=== PATIENT | female | born 1960 | race Caucasian/White ===

== ENCOUNTER 2016-07-12 11:04 | Day surgery (SDC) | payer MEDICARE ==
[~2016-07-12] VITALS: Ht 170.2 cm; Wt 136.1 kg
[~2016-07-12 11:04] MED LIST: AMT25T PO; BUPR150T8 PO; CALC-1034 PO; FLUC150T3 PO; GABA400C PO; HYDR-3089 PO; IBUP200C PO; LEVO112T4 PO; Lactated Ringer's 1,000 ML IV ONE; METH750T3 PO; OMEP40CA36 PO; TOPI200C5 PO
[2016-07-12] MEDS ORDERED: Propofol 10,000 mCg/mL 20 mL Inj ONE (11:05)
[2016-07-12 11:29] VITALS: BP 144/82; PULSE 96; O2SAT 96
[2016-07-12] MEDS ORDERED: MetoCLOpramide 5 mg/mL 2 mL Inj IVPUSH PRN (12:05)
[2016-07-12] MEDS ORDERED: Lactated Ringer's 1,000 ML IV SCH (12:05)
[2016-07-12] MEDS ORDERED: Ondansetron 2 mg/mL 2 mL Inj IVPUSH PRN (12:05)
[2016-07-12 12:51] VITALS: BP 113/70; PULSE 90; RESP 16; O2SAT 96
[2016-07-12 13:03] VITALS: BP 113/70; PULSE 89; RESP 16; O2SAT 96
[2016-07-12 13:13] VITALS: BP 106/68; PULSE 90; RESP 16; O2SAT 97
--- NOTE | 2016-07-12 13:27 | ENDO ---
[address] [address] ENDOSCOPY PROCEDURE PATIENT: KYLER CONCEPCION : 1960 MR#: [id number] ADMIT: 07/12/2016 JOB ID: [id number] DATE: 07/12/2016 PRIMARY PROVIDER: Paul Hubbard MD PROCEDURE: 1. Esophagogastroduodenoscopy with biopsy. 2. Colonoscopy. INDICATIONS: A 55-year-old female with a history of gastroesophageal reflux who reports for [facility] screening. Generally speaking, symptoms are reasonably well controlled on Prilosec. She additionally has constipation that alternates with diarrhea particularly when stressed out. Colon cancer screening is pursued as well. EQUIPMENT: GIF H 180 J and a PCF H 190 DL. SEDATION: Monitored anesthesia as provided by Dr. Aki Ariza. COMPLICATIONS: None identified. BOWEL PREPARATION: Fair, adequate examination. PROCEDURAL INFORMATION: After the risks and benefits are explained, written and verbal informed consent was obtained. The patient was brought into the endoscopy suite and placed into the left lateral decubitus position. Sedation was achieved using the above-stated medications with the addition of oxygen via nasal cannula. The scope was introduced into the mouth through the bite block, and advanced under direct visualization through the oropharynx, esophagus, stomach, and onto the second portion of the duodenum. The scope was slowly withdrawn to carefully examine the mucosa for any defects or lesions. Retroflexed views were accomplished in the stomach. The stomach was decompressed. The scope removed from the patient who tolerated the procedure well. The patient was then turned around. A digital rectal examination accomplished. Mild internal hemorrhoids noted. The scope was introduced into the rectum and advanced under direct visualization to the level of the cecum, as identified by the appendiceal orifice and ileocecal valve. The terminal ileum was briefly accessed. The scope then slowly withdrawn to carefully examine the mucosa for any defects or lesions. Multiple direct views were made through the dentate line for exclusion of pathology. The colon was decompressed. The scope removed the patient who tolerated the procedure well. FINDINGS: 1. Duodenum: This appeared normal from the bulb through to the second portion. 2. Stomach: The patient had a mild gastropathy characterized by some patchy erythema in the antrum. No outlet obstruction. No ulcers. No mass lesions. Several benign diminutive polyps were seen through the body of the stomach and a few of these were sampled for histopathologic analysis. Otherwise, retroflexed views of the LES were rather unremarkable. 3. Esophagus: The patient had a subtle sliding hiatal hernia and the GE junction was at approximately 38 cm from the incisors. There was a small area of healing superficial ulcer versus erosion right at the level of the GE junction in the 3-4 o'clock location. No mass lesions. No sinister pathology seen throughout the esophagus. 4. Colon: No macroscopic colitis seen throughout. No proctitis. No significant polyps or mass lesions. ENDOSCOPIC DIAGNOSES: 1. Diminutive gastric polyps. 2. Mild gastropathy. 3. Hiatal hernia. 4. Esophagitis. 5. Mild hemorrhoids. 6. Otherwise visually unremarkable colonoscopy to cecum. RECOMMENDATIONS: 1. Await histopathology. 2. Continue anti reflux therapy. For any increasing symptoms, the patient may need to consider b.i.d. omeprazole therapy in addition to lifestyle modifications for weight loss. 3. Repeat colonoscopy 10 years' time. 4. No surveillance EGD is anticipated. 5. The patient is encouraged to attempt fiber supplementation with 2 tablespoons ground flaxseed fiber mixed with 8 ounces of water or juice once or twice daily. Ideally this eliminates both the constipation and diarrhea that tend to fluctuate. 6. Followup in GI clinic on a p.r.n. basis any time.
--- NOTE | 2016-07-12 14:39 | PCM.ANEP1 ---
Post Anesthesia Phase 1 PACU Phase 1 Assessment Vital Signs Vital Signs Date Time Temp Pulse Resp B/P Pulse Ox O2 Delivery O2 Flow Rate FiO2 07/12/16 13:13 90 16 106/68 97 Room Air 07/12/16 13:03 89 16 113/70 96 Room Air 07/12/16 12:51 35.7 90 16 113/70 96 Room Air 07/12/16 11:29 36.4 96 144/82 96 Room Air Anesthetic Administered: MAC Level of Alertness: Awake, talking LOPES's with Equal Strength: Yes Pain: No Nausea or Vomiting: No Oxygen Delivery: Room Air Lungs: Clear to Auscultation, Normal Air Movement Dermatome Level: Full Sensation Aki Ariza MD Jul 12, 2016 14:39
--- NOTE | 2016-07-12 14:39 | PCM.HPANE ---
Patient Data Surgeon Admitting Provider: Attending Provider:Alberto Schulz MD Primary Care Physician:Paul Hubbard MD Other Provider:AssocLorenaLeawood Anesthesia Reason for Visit Irritable Bowel Syndrome, Gerd Ht/WT & BMI Body Mass Index Allergies Coded Allergies: latex (Verified Allergy, Severe, RASH, 03/10/16) Past Anesthesia History Anesthesia History: Positive for:: Anesthesia Reactions (awareness/recall during thyroid surgery), Denies:: Fam Anesthesia Reaction, Malignant Hyperthermia Diabetes History Hx Diabetes?: Yes Type of Diabetes: Diet Controlled Glycemic Control: Oral Medication MRSA MRSA: No Medications Reported Medications Gabapentin (Neurontin)400 Mg Ahlwxos883 Mg PO TID 30 Days Ref 0 07/08/16 Hydrocodone-Acetaminophen 10-300 mg 1 Each Tablet1 Tablet PO [id number] PRN For Pain Ref 0 07/08/16 Amitriptyline 25 Mg Tab25 Mg PO BID Ref 0 07/08/16 Bupropion ER (Wellbutrin SR)150 Mg Tablet.er450 Mg PO DAILY Ref 0 12/11/15 Topiramate ER 200 Mg Yjhnpgb196 Mg PO BID 12/11/15 Omeprazole 40 Mg Capsule.dr40 Mg PO DAILY Ref 0 12/11/15 Methocarbamol 750 Mg Ukcvyd097 Mg PO Q4H PRN For Spasm Ref 0 12/11/15 Levothyroxine 112 Mcg Mkxplh349 Mcg PO HS For Thyroid Replacement #AD TABLET Ref 0 12/11/15 Calcium Carbonate/Vitamin D3 (Calcium 600 + Vit D3 400 Tab)600 Mg-400 Tablet1 Each PO BID 12/11/15 Discontinued Reported Medications Fluconazole 150 Mg Diemnm988 Mg PO ONCE #1 TABLET Ref 0 07/08/16 Ibuprofen 200 Mg Frkboyw142 Mg PO QID PRN For Pain Ref 0 12/11/15 Gabapentin (Neurontin)300 Mg [place]545 Mg PO BID 30 Days Ref 0 12/11/15 Amitriptyline 10 Mg Igolkj15 Mg PO BID Ref 0 12/11/15 Discontinued Scripts Hydrocodone-Acetaminophen 10-325 mg 1 Each Tablet1-2 Tablet PO Q6H PRN For Pain #50 TABLET Ref 0 Prov:Zeferino Cardona MD 03/11/16 History History of ENT Problems?: Yes HEENT History: Positive for:: Sinus Problem (CHRONIC MAXILLARY SINUSITIS ( HAYFEVER)) Hx of Heart Problems?: No Cardiovascular History: Positive for:: Chest Pain (DEEMED NON-CARDIAC) Denies:: Congestive Heart Failure Hypertension Hx of Respiratory Problem?: No Respiratory History: Positive for:: Chest Surgery (S/P MEDIASTINOSCOPY) Dyspnea (CAMPBELL) Pneumonia (HX OF) Use of C-PAP Machine Denies:: Tuberculosis Hx Neurologic Problems?: No Neurological History: Positive for:: CVA (@ AGE 41YRS) Headaches Hx of GI Problems?: Yes Gastrointestinal History: Positive for:: Gastroesphageal Reflux Hx of Problems?: No Genitourinary History: Positive for:: Kidney Stones Denies:: HX of Hemodialysis (CHRONIC RENAL INSUFFIENCY) Female Hx: Denies:: Currently Skin History: Denies:: History Skin Disorders? Pressure Ulcers Hx Musculoskeletal Problems?: Yes Musculoskeletal History: Positive for:: Musculoskeletal Trauma (S/P ORIF LT WRIST) Hx of Psycho/Social Problems?: Yes Psycho Social History: Positive for:: Anxiety Hx Depression Denies:: Suicide Attempt Hx Surgeries?: Yes (THRYOIDECTOMY, PARATHRYOIDECTOMY, L WRIST, VERICAL VEINS) Hx Any Other Health Problems?: Yes Other History: Positive for:: Cancer (THRYOID CA) Hospitalization Thyroid Disease Denies:: Endocrine Disease Hx Diabetes: Yes Hx Alcohol Use: NoHx Substance Use: No Smoking Status: Never Smoker Have You Smoked inLast 12 mo: No Stop/Bang Risk Assessment Category Category 1A: Patient has history of documented sleep apnea, and HAS NOT received any narcotic, sedative or anesthesia administration during this stay. Category 1B: Patient has history of documented sleep apnea, and HAS received any narcotic , sedative or anesthesia administration during this stay Category 2: Patient has SUSPECTED Obstructive Sleep Apnea, and HAS received any narcotic , sedative or anesthesia administration during this stay. Category 3: Patient has SUSPECTED Obstructive Sleep Apnea and HAS NOT received narcotic, sedative or anesthesia administration during this stay. Category 4: Outpatient in Procedural Areas with known sleep apnea or who screen positive for High Risk via the STOP/BANG questionnaire. Exam Exam General Appearance: Alert, Oriented X3, Cooperative, No Acute Distress HEENT/AIRWAY: MP 2 Lungs: Clear to Auscultation, Normal Air Movement Heart: Exam Unremarkable, Regular Rate/Rhythm, No Murmurs/Rubs/Gallops Plan Impression Patient chart reviewed, patient interviewed and anesthestic plan with risks, benefits, and alternatives discussed, and informed consent obtained. NPO Status: 03/16/16 ASA Physical Status: ASA2 Mod Systemic Disease Anesthetic Plan: MAC Bene/Risks/Altern/Consents: Yes HP Complete Prior to Induction: Yes Aki Ariza MD Jul 12, 2016 07:29
--- NOTE | 2016-07-12 14:40 | PCM.ANEP2 ---
Post Anesthesia Evaluation ASA/CMS Post Anesthesia VS in Patient's Normal Range?: Yes Resp Stable; Airway Patent?: Yes CV Function & Hydration Stable: Yes Mental Status Recovered?: Yes Pain control Satisfactory?: Yes N/V Control Satisfactory?: Yes Aki Ariza MD Jul 12, 2016 14:40
--- NOTE | 2016-07-13 12:45 | PATH ---
SURGICAL PATHOLOGY Attending Physician:Carin Adams CASE STATUS: Signed Out PATIENT NAME: KYLER CONCEPCION PID: [id number] : 1960 DATE COLLECTED:07/12/2016 20:19 SPECIMEN: Stomach, Polyp, Biopsy CLINICAL HISTORY: 1). GASTRIC POLYP FINAL DIAGNOSIS: 1.GASTRIC POLYP: BENIGN FUNDIC GLAND POLYP, NEGATIVE FOR ATYPIA. ICD10 CODE K31.7 GROSS DESCRIPTION: The specimen is received in one formalin filled container labeled with the patient's name, sublabeled "gastric polyp" and consists of 3 portions of tissue which aggregate to 0.3 x 0.3 x 0.3 CM. The specimen is entirely submitted in one cassette. 07/12/2016 DAC MICRO DESCRIPTION: See diagnosis. ICD-9 CODES: CPT CODES: 1: 56479 Electronically Signed Out Alberto Walsh MD [facility] [address], [place] [address] Technical component performed at [facility], [facility] [address], [place], [address]
== END 2016-07-12 23:59 | disposition home or self-care (01) ==
LOC: END 11:04
PROVIDERS: ATTEND Internal Medicine Gastroenterology
DX: K58.0 Irritable bowel syndrome with diarrhea (principal); K64.9 Unspecified hemorrhoids; K21.9 Gastro-esophageal reflux disease without esophagitis; K31.7 Polyp of stomach and duodenum; K20.9 Esophagitis, unspecified; K44.9 Diaphragmatic hernia without obstruction or gangrene; E11.9 Type 2 diabetes mellitus without complications; G89.4 Chronic pain syndrome; M79.7 Fibromyalgia; F41.8 Other specified anxiety disorders; E66.9 Obesity, unspecified; E89.0 Postprocedural hypothyroidism; Z85.850 Personal history of malignant neoplasm of thyroid; Z86.73 Personal history of transient ischemic attack (TIA), and cerebral infarction without residual deficits; Z68.42 Body mass index [BMI] 45.0-49.9, adult; Z79.891 Long term (current) use of opiate analgesic
CPT/HCPCS: 43239; 45378; J7120